=== PATIENT | male | born 1965 | race Caucasian/White ===

== ENCOUNTER 2018-08-20 17:26 | Inpatient (IN) | payer OTHER ==
[2018-08-20] VITALS (13 sets, daily range): O2SAT 95–100
[~2018-08-20] VITALS: Ht 165.1 cm; Wt 52.8 kg
[~2018-08-20 17:26] MED LIST: NO HOME MEDICATIONS
[2018-08-20] MEDS ORDERED: ASPIRIN 32325 MG/TAB PO (18:02)
[2018-08-20 20:28] LABS: BASO % 0.1 % (0.0-2.0); GRAN # 14.2 (1.4-6.5); GRAN % 83.5 % (42.2-75.2); HEMOGLOBIN 11.5 g/dl (13.5-18.0); LYMPH # 1.2 (1.2-3.4); LYMPH % 7.3 % (20.0-51.0); MEAN CELL VOLUME 97 fl (80.0-100.0); MEAN CORPUSCULAR HEMOGLOBIN 36 pg (27.0-31.0); MEAN CORPUSCULAR HGB CONC 37 g/dl (33.0-37.0); MEAN PLATELET VOLUME 9.7 fl (7.4-10.4); MONO # 1.3 (0.1-0.6); MONO % 7.9 % (1.7-9.3); PLATELET COUNT 151 K/mm3 (130-400); RED BLOOD COUNT 3.24 M/mm3 (4.20-5.60); REDCELL DISTRIBUTION WIDTH-CV 12.2 % (11.5-14.5)
[2018-08-20 20:29] LABS: HEMATOCRIT 31.4 % (42.0-52.0)
[2018-08-20 20:32] LABS: INR 1.1 (0.8-3.0)
[2018-08-20 20:34] LABS: PARTIAL THROMBOPLASTIN TIME 29.4 SECONDS (26.0-37.0)
[2018-08-20 20:40] LABS: ALANINE AMINOTRANSFERASE 64 U/L (21-72); ALBUMIN 2.9 gm/dL (3.5-5.0); ALKALINE PHOSPHATASE 157 U/L (50-136); ANION GAP 12 mmol/L (7-16); AST,SGOT 119 U/L (15-37); BLOOD UREA NITROGEN 12 mg/dL (9-20); C-REACTIVE PROTEIN 3.1 mg/dL (0.0-0.9); CALCIUM 7.7 mg/dL (8.4-10.2); CARBON DIOXIDE 27 mmol/L (22-30); CREATINE KINASE 1054 U/L (55-170); CREATININE, serum 0.58 mg/dL (0.66-1.25); GLUCOSE 62 mg/dL (74-106); LIPASE 83 U/L (23-300); MAGNESIUM 1.9 mg/dL (1.6-2.3); PHOSPHOROUS 2.8 mg/dL (2.5-4.5); TOTAL PROTEIN 6.5 gm/dL (6.4-8.2)
[2018-08-20 20:50] LABS: ALCOHOL(ethanol),MEDICAL < 10 mg/dL; CHLORIDE 80 mmol/L (98-107); POTASSIUM 2.9 mmol/L (3.4-5.0); SODIUM 118 mmol/L (137-145); TROPONIN-I 0.146 ng/mL (0.000-0.035)
[2018-08-20 22:37] LABS: CALCIUM 7.1 mg/dL (8.4-10.2); CREATININE, serum 0.47 mg/dL (0.66-1.25)
[2018-08-20 22:38] LABS: POTASSIUM 2.6 mmol/L (3.4-5.0)
[2018-08-21] VITALS (543 sets, daily range): BP systolic 101–129; BP diastolic 68–100; PULSE 61–87; TEMP 97.7–99.1; O2SAT 66–100
[2018-08-21] LABS: COLLECTION METHOD CLEAN CATCH
[2018-08-21 00:12] LABS: TRICYCLIC ANTIDEPRESS URINE NEGATIVE
[2018-08-21 00:15] LABS: PH 7 (5-8); SQUAMOUS EPITHELIAL 0-2 /hpf; URINE APPEARANCE Clear; URINE BACTERIA None Seen /hpf; URINE BILIRUBIN Negative (NEGATIVE); URINE BLOOD Negative (NEGATIVE); URINE COLOR Yellow; URINE GLUCOSE 1+ (NEGATIVE); URINE KETONE 1+ (NEGATIVE); URINE LEUKOCYTE ESTERASE Negative (NEGATIVE); URINE NITRATE Negative (NEGATIVE); URINE PROTEIN(semi-quant) Negative (NEGATIVE); URINE RBC 0-2 /hpf; URINE UROBILINOGEN Negative (NEGATIVE)
[2018-08-21 02:12] LABS: ARTERIAL BLD GAS O2 SATURATION 95.9 % (92-100); ARTERIAL BLD GAS TCO2 CT 23.6; ARTERIAL BLOOD GAS BASE EXCESS -2.5 (-2-2); ARTERIAL BLOOD GAS HCO3 22.4 meq/L (22-26); ARTERIAL BLOOD GAS PCO2 39.3 mmHg (35-45); ARTERIAL BLOOD GAS pH 7.37 (7.35-7.45)
--- NOTE | 2018-08-21 02:29 | NUR ---
PT LETHARGIC UPON ARRIVAL, UNABLE TO COMPLETE FULL ASSESSMENT PT IS TOO SICK AND NOT FULLY AWAKE TO ANSWER QUESTIONS. ASSESSMENT WAS DONE THROUGH ER NOTES/H&P. MEDICATION RECONCILLIATION UNABLE TO REVIEW PT DOESN'T HAVE MEDICATIONS WITH HIM IN HIS BELONGING AND PT NOT ALERT AND ORIENTED AT THIS TIME.
[2018-08-21 03:13] LABS: ALBUMIN 2.3 gm/dL (3.5-5.0); BILIRUBIN,TOTAL 1.4 mg/dL (0.0-1.0); CALCIUM 6.6 mg/dL (8.4-10.2); CREATININE, serum 0.46 mg/dL (0.66-1.25); POTASSIUM 3.4 mmol/L (3.4-5.0); TOTAL PROTEIN 5.4 gm/dL (6.4-8.2)
[2018-08-21 03:27] LABS: TROPONIN-I 0.109 ng/mL (0.000-0.035)
[2018-08-21 03:43] LABS: TSH w REFLEX 1.7 uIU/mL (0.465-4.680)
--- NOTE | 2018-08-21 03:53 | NUR ---
PT LETHARGIC UPON ARRIVAL, HAS SLURRED SPEECH AT TIMES AND HARD TO UNDERSTAND. BED BATH GIVEN. BELONGIGS AT BEDSIDE. UNABLE TO COMPLETE A FULL ASSESSMENT PT IS NOT ALERT AND ORIENTED. WILL CONTINU TO MONITOR.
--- NOTE | 2018-08-21 04:50 | NUR ---
2305 ARRIVED AT UNIT VIA STETCHER, LETHARGIC AND CONFUSED. UNABLE TO COMPLETE MEDICATION RECONCILIATION AND FAMILY HISTORY DUE TO PT'S CONDITION AT THIS TIME. 0120 - PT OFF UNIT FOR CT SCAN. 0140 - PT BACK ON ROOM. 0315 - PT STARTED ON LOW DOSE HEPARIN PROTOCOL ORDERED. NEXT HEP XA AT 0915.
--- NOTE | 2018-08-21 07:20 | NUR ---
Received bedside report from BRENDA Mason. Patient was resting in bed asking when he would get to go home.
--- NOTE | 2018-08-21 08:00 | NUR ---
Patient wakes from sleep and then tries to get out of bed. Bed Alarm goes off and when I enter the room. Network Developer, Destin, in room helping patient. He has just gotten done getting echocardiogram. The patient asks "Do I have a black eye?"
--- NOTE | 2018-08-21 08:00 | NUR ---
Patient is confused at this time. Patient does not remeber falling down the stiars or being transported by EMS.
[2018-08-21 09:43] LABS: CALCIUM 6.7 mg/dL (8.4-10.2); CREATININE, serum 0.44 mg/dL (0.66-1.25)
[2018-08-21 09:46] LABS: POTASSIUM 2.9 mmol/L (3.4-5.0)
--- NOTE | 2018-08-21 10:00 | NUR ---
Dr. Holley here to see patient. Team rounding is done, but I was not able to be in room at the time. Dr. Holley comes out of the room and states " he will probably want to leave AMA today. He is saying he wants to leave." I respond to Dr. Holley by saying, "Personally, I don't feel like he is safe to go home at this time and he isn't fully oriented and he doesn't seem able to make his own decisions." Dr. Holley responds with "well, he answered all of my questions correctly and he is able to make his own decisions. SW, Pharmacy, and Case Management present for this conversation.
[2018-08-21 10:14] LABS: BASO % 0.1 % (0.0-2.0); EOS % 0.1 % (0-4.0); GRAN # 10.1 (1.4-6.5); GRAN % 80.8 % (42.2-75.2); HEMATOCRIT 28.5 % (42.0-52.0); HEMOGLOBIN 10.1 g/dl (13.5-18.0); LYMPH # 1.4 (1.2-3.4); LYMPH % 11.2 % (20.0-51.0); MEAN CELL VOLUME 101 fl (80.0-100.0); MEAN CORPUSCULAR HEMOGLOBIN 36 pg (27.0-31.0); MEAN CORPUSCULAR HGB CONC 35 g/dl (33.0-37.0); MEAN PLATELET VOLUME 9.4 fl (7.4-10.4); MONO # 0.9 (0.1-0.6); MONO % 6.9 % (1.7-9.3); PLATELET COUNT 149 K/mm3 (130-400); RED BLOOD COUNT 2.83 M/mm3 (4.20-5.60); REDCELL DISTRIBUTION WIDTH-CV 12.3 % (11.5-14.5)
--- NOTE | 2018-08-21 11:00 | NUR ---
Patient has been intermittently stating that he needs to "get out of here. I have chores to do. 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 He states "that's not true. I never went downstairs." I ask the patient if he remembers coming to the hospital. He states "I remember sitting down in my chair at home and then i woke up here!" He gets quite agitated and states that he is leaving now. I am able to redirect the patient and talk to him about lunch. He redirects easily.
[2018-08-21 13:21] LABS: FOLATE (FOLIC ACID) >20.0 ng/mL (7.0-31.4)
--- NOTE | 2018-08-21 13:41 | NUR ---
LORENZO and LORENZO student attended clinical rounding and met with patient to discuss discharge planning. Patient lives alone and was found at the bottom of his basement stairs by his brother in law. The clinical laboratory assistant and ems were called. They report his house is uninhabitable. patient would like to return home at discharge and wants to go home today but would be leaving AM. Patient does not have a PCP and has a cane but does not use it. His DPOA is his niece Raúl. LORENZO called Raúl who reports that she does have DPOA and will bring it in. Raúl is concerns with him returning home due to the conditions he is living in. The police reported he did not have any food in the home and raúl checked his food card and it has not been used since february. Raúl reports there are and live cats all over the house, feces, no central heat and he is using small space heaters, and stuff to the point that you cant get to the bathroom or kitchen. LORENZO set up a meeting at 1:45 with raúl at the hospital. Patients sister France came to the hospital and asked for an update. LORENZO informed her that she could not update her medically since she isnt dpoa but will discuss concerns with her. She reports it was her that found him and that they hadn't heard from him for a few days and became worried. France said she takes him food when she can but he doesn't get food on his own. He is living in the house that was his parents and has been drinking heavily since his mom 10 years ago. She is also worried about him returning home. LORENZO explained that patient is able to make his own decisions and at this time would like to go home. LORENZO informed her of the family meeting at 1:45 and she reports she will come back for that. LORENZO made APS report [id number]. [facility] called about patients old Medicaid. Will come meet with TAYO once she arrives.
--- NOTE | 2018-08-21 16:07 | NUR ---
SW met with patients DPOA/niece and sister. They are concerned about his wellbeing returning home. Patient is confused today and does not remember what happened or why he is in the hosptial. 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 Patient does not have cows. Niece would like placement for patient in or close to [place]. Patient is not agreeable to placement at this time but is unable to safely return to his home. TAYO copied and placed on chart. LORENZO made referrals to [facility] in [place] and [facility] in [place]. [facility] is unable to take new referrals next week and ahsan did not answer the phone. LORENZO will continue to work with patient and family on DC planning. Arlen with finance completed medicaid francesco with patients DPOA.
--- NOTE | 2018-08-21 16:48 | NUR ---
Patient has been very agitated. Patient received 1 mg of Ativan.
--- NOTE | 2018-08-21 17:00 | NUR ---
Patient tries to get out of bed. Bed Alarm goes off. He then urinates all over himself, the bed, and the floor. 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
--- NOTE | 2018-08-21 19:18 | NUR ---
Gave report to BRENDA Foster. Patient was asleep. MEdications varified and patient handed off.
--- NOTE | 2018-08-21 19:18 | NUR ---
Bedside report recieved from BRENDA Duong. Patient sleeping in bed in low and locked position, call light within reach, rails up x3 and bed alarm armed. RFA IV with NS running at ordered rate and Heparin running at 11ml/hr. Care assumed at this time.
--- NOTE | 2018-08-21 20:25 | NUR ---
Patient agitated and restless at this time. Found to have pulled INT IV from right hand. Pressure held and dressing applied. Patient is reoriented and provided PRN ativan as documented in AUG. Full bed bath provided at this time with change of sheets and gown. Patient is provided warm blankets and positioned for comfort with seizure pads in place, bed in low and locked position, call light within reach, rails up x3, and bed alarm armed. Will continue to monitor.
--- NOTE | 2018-08-21 22:20 | NUR ---
CIWA score as documented without need for dosing at this time. Care ongoing.
[2018-08-21 23:06] LABS: MAGNESIUM 1.8 mg/dL (1.6-2.3); PHOSPHOROUS 1.6 mg/dL (2.5-4.5)
[2018-08-21 23:13] LABS: POTASSIUM 2.9 mmol/L (3.4-5.0)
[2018-08-22] VITALS (742 sets, daily range): BP systolic 98–124; BP diastolic 68–104; PULSE 66–94; TEMP 97–98.5; O2SAT 54–100
--- NOTE | 2018-08-22 00:14 | NUR ---
Patient with positive visual hallucinations upon assessment. Reorientation provided.
--- NOTE | 2018-08-22 00:27 | NUR ---
Patient with frequent attempts to climb from bed so far this shift. Frequent reorientation provided and bed alarm remains on at most sensitive setting. Care ongoing.
[2018-08-22 05:41] LABS: BASO % 0.2 % (0.0-2.0); EOS # 0.1 (0.0-0.7); GRAN # 8.6 (1.4-6.5); GRAN % 72.2 % (42.2-75.2); HEMOGLOBIN 10.8 g/dl (13.5-18.0); LYMPH # 2.1 (1.2-3.4); LYMPH % 17.3 % (20.0-51.0); MEAN CELL VOLUME 101 fl (80.0-100.0); MEAN CORPUSCULAR HEMOGLOBIN 36 pg (27.0-31.0); MEAN CORPUSCULAR HGB CONC 36 g/dl (33.0-37.0); MEAN PLATELET VOLUME 9.2 fl (7.4-10.4); MONO % 8.5 % (1.7-9.3); PLATELET COUNT 177 K/mm3 (130-400); RED BLOOD COUNT 2.97 M/mm3 (4.20-5.60); REDCELL DISTRIBUTION WIDTH-CV 12.3 % (11.5-14.5)
[2018-08-22 05:55] LABS: ALBUMIN 2.5 gm/dL (3.5-5.0); BILIRUBIN,TOTAL 1.3 mg/dL (0.0-1.0); CALCIUM 7.1 mg/dL (8.4-10.2); CREATININE, serum 0.43 mg/dL (0.66-1.25); POTASSIUM 3.8 mmol/L (3.4-5.0); TOTAL PROTEIN 5.8 gm/dL (6.4-8.2)
--- NOTE | 2018-08-22 08:00 | NUR ---
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 Pt educated field artillery operations specialist light to prevent fall, and of bed alarm (which is on) if pt attempts to get out of bed.
--- NOTE | 2018-08-22 09:00 | NUR ---
Pt's daughter at bedside visting. Expressing concern for home environment after showing this staff memeber photographs of home. client services administrator is involved in care.
[2018-08-22 11:59] LABS: URIC ACID 2.6 mg/dL (3.5-8.5)
[2018-08-22 13:47] LABS: CALCIUM 7.1 mg/dL (8.4-10.2); CREATININE, serum 0.45 mg/dL (0.66-1.25); POTASSIUM 3.4 mmol/L (3.4-5.0)
[2018-08-22 16:40] LABS: CREATININE, serum 0.4 mg/dL (0.66-1.25)
[2018-08-22 16:45] LABS: POTASSIUM 2.7 mmol/L (3.4-5.0)
[2018-08-22 20:42] LABS: CALCIUM 6.8 mg/dL (8.4-10.2); CREATININE, serum 0.36 mg/dL (0.66-1.25)
--- NOTE | 2018-08-22 20:45 | NUR ---
Patient very impulsive at this time; attempting to stand up unassisted in bed. States " I know my own limitations!" In response to nurses request to stay in bed for own saftey as he is unsteady on his feet. Requested multiple for this patient to stay in bed as he was continuously attempting to get up. Patient asking to put his pants on. Pants were in bag and were damp and smelled of urine and feces. Was able to convince patient to stay in gown. supervisor cutting and sewing room called and she took patient's clothing to the laundry to wash them; patient ok with this. PRN ativan administered.
[2018-08-23] VITALS (620 sets, daily range): BP systolic 87–124; BP diastolic 56–91; PULSE 60–101; TEMP 97.8–98.5; O2SAT 89–100
--- NOTE | 2018-08-23 01:00 | NUR ---
Patient again attempting to stand up unassisted to void. Gave patient urinal and allowed patient to stand by bed with stand by assist. Sheets wet with urine. Bedding changed.
[2018-08-23 01:24] LABS: CREATININE, serum 0.4 mg/dL (0.66-1.25); POTASSIUM 3.5 mmol/L (3.4-5.0)
[2018-08-23 01:55] LABS: CALCIUM 7.1 mg/dL (8.4-10.2)
--- NOTE | 2018-08-23 02:10 | NUR ---
Called E-ICU nurse to report latest BMP values. Awaiting orders if needed.
--- NOTE | 2018-08-23 03:40 | NUR ---
Patient resting comfortably in bed on sedation; no concerns at this time.
--- NOTE | 2018-08-23 04:30 | NUR ---
Patient resting quietly in bed; no concerns at this time.
[2018-08-23 04:46] LABS: BASO % 0.1 % (0.0-2.0); EOS # 0.2 (0.0-0.7); EOS % 1.6 % (0-4.0); GRAN # 7.2 (1.4-6.5); GRAN % 71.9 % (42.2-75.2); LYMPH # 1.4 (1.2-3.4); LYMPH % 13.9 % (20.0-51.0); MEAN CELL VOLUME 101 fl (80.0-100.0); MEAN CORPUSCULAR HEMOGLOBIN 36 pg (27.0-31.0); MEAN CORPUSCULAR HGB CONC 35 g/dl (33.0-37.0); MEAN PLATELET VOLUME 9.6 fl (7.4-10.4); MONO # 1.2 (0.1-0.6); MONO % 11.5 % (1.7-9.3); PLATELET COUNT 203 K/mm3 (130-400); RED BLOOD COUNT 2.81 M/mm3 (4.20-5.60); REDCELL DISTRIBUTION WIDTH-CV 12.3 % (11.5-14.5)
[2018-08-23 04:50] LABS: HEMATOCRIT 28.3 % (42.0-52.0)
[2018-08-23 05:03] LABS: ALBUMIN 2.4 gm/dL (3.5-5.0); BILIRUBIN,TOTAL 0.7 mg/dL (0.0-1.0); CALCIUM 7.3 mg/dL (8.4-10.2); CREATININE, serum 0.41 mg/dL (0.66-1.25); POTASSIUM 3.9 mmol/L (3.4-5.0); TOTAL PROTEIN 5.4 gm/dL (6.4-8.2)
--- NOTE | 2018-08-23 07:00 | NUR ---
Pt AAOx3 but groggy with pt-aware occasional slurred speech. Pt able to state name//location but remains unaware of how pt ended up in hospital. Call light within reach, educated to not attempt to get out of bed d/t fall risk. Pt agrees verbally
--- NOTE | 2018-08-23 08:00 | NUR ---
$26 sealed in package, signed by Pt & RN, taken to safe by BRENDA Weirsoftware engineer web applications
[2018-08-23 09:32] LABS: ANION GAP 3 mmol/L (7-16); BLOOD UREA NITROGEN < 2 mg/dL (9-20); CALCIUM 7.4 mg/dL (8.4-10.2); CARBON DIOXIDE 28 mmol/L (22-30); CHLORIDE 91 mmol/L (98-107); CREATININE, serum 0.41 mg/dL (0.66-1.25); GLUCOSE 95 mg/dL (74-106); POTASSIUM 3.7 mmol/L (3.4-5.0); SODIUM 122 mmol/L (137-145)
--- NOTE | 2018-08-23 09:45 | NUR ---
MD Vivek and MD Caden at bedside speaking with pt about plan of care.
--- NOTE | 2018-08-23 10:32 | NUR ---
Devante of pt called, updated, will be coming to visit "after lunch time"
[2018-08-23 10:50] LABS: MAGNESIUM 1.6 mg/dL (1.6-2.3); PHOSPHOROUS 1.8 mg/dL (2.5-4.5)
--- NOTE | 2018-08-23 11:42 | NUR ---
Pt moving head side to side with 5-10 strong coughs per min. Endotracheal suction performed with small amount secretions, oral care provided after pt stopped coughing and moving head.
--- NOTE | 2018-08-23 13:00 | NUR ---
Physical Therapy moved pt from bed to chair. Pt unsteady. Chair alarm applied, pt educated on fall risk d/t history of fall, malnutrition and labs out of normal range. Family member (sister) visiting. Call light within reach, all cords and tubes placed in organized fashion.
[2018-08-23 13:23] LABS: CALCIUM 7.2 mg/dL (8.4-10.2); CREATININE, serum 0.45 mg/dL (0.66-1.25); POTASSIUM 3.5 mmol/L (3.4-5.0)
--- NOTE | 2018-08-23 16:44 | NUR ---
Devante at bedside visiting. Pt remains up to chair. Pt stating wish to remove all lines and tubes to get up and walk around by onself. Pt re-educated on fall risk and call light
[2018-08-23 18:09] LABS: CALCIUM 6.9 mg/dL (8.4-10.2); CREATININE, serum 0.41 mg/dL (0.66-1.25); POTASSIUM 3.2 mmol/L (3.4-5.0)
--- NOTE | 2018-08-23 20:00 | NUR ---
Shift assessment complete at this time. Plan of care reviewed at bedside with patient et family. Additional time taken to address any other needs or concerns. Vitals stable at this time. Pt denies pain or any other concerns. Assisted Pt with ambulation from chair back to bed. Will continue to monitor.
[2018-08-23 21:29] LABS: CALCIUM 7.1 mg/dL (8.4-10.2); CREATININE, serum 0.46 mg/dL (0.66-1.25); POTASSIUM 3.3 mmol/L (3.4-5.0)
[2018-08-24] VITALS (988 sets, daily range): BP systolic 93–161; BP diastolic 69–99; PULSE 70–104; TEMP 98.1–100.3; O2SAT 88–100
--- NOTE | 2018-08-24 | NUR ---
Shift reassessment complete at this time. No changes from previous assessment. Vitals stable. Pt denies pain or any other discomfort. Will continue to monitor.
[2018-08-24 01:20] LABS: CREATININE, serum 0.47 mg/dL (0.66-1.25); POTASSIUM 3.6 mmol/L (3.4-5.0)
--- NOTE | 2018-08-24 04:00 | NUR ---
Shift reassessment complete at this time. No changes from previous assessment. Vitals stable at this time. Denies pain or any other discomfort. Will continue to monitor.
[2018-08-24 05:57] LABS: BASO % 0.2 % (0.0-2.0); EOS # 0.1 (0.0-0.7); EOS % 1.3 % (0-4.0); GRAN % 63.2 % (42.2-75.2); LYMPH # 1.8 (1.2-3.4); MEAN CELL VOLUME 102 fl (80.0-100.0); MEAN CORPUSCULAR HGB CONC 35 g/dl (33.0-37.0); MEAN PLATELET VOLUME 9.5 fl (7.4-10.4); MONO # 1.4 (0.1-0.6); PLATELET COUNT 245 K/mm3 (130-400); RED BLOOD COUNT 2.47 M/mm3 (4.20-5.60); REDCELL DISTRIBUTION WIDTH-CV 12.6 % (11.5-14.5)
[2018-08-24 05:59] LABS: HEMATOCRIT 25.2 % (42.0-52.0); HEMOGLOBIN 8.8 g/dl (13.5-18.0); MEAN CORPUSCULAR HEMOGLOBIN 36 pg (27.0-31.0)
[2018-08-24 06:14] LABS: ALBUMIN 2.2 gm/dL (3.5-5.0); BILIRUBIN,TOTAL 0.4 mg/dL (0.0-1.0); CREATININE, serum 0.4 mg/dL (0.66-1.25); MAGNESIUM 1.5 mg/dL (1.6-2.3); POTASSIUM 3.8 mmol/L (3.4-5.0); TOTAL PROTEIN 5.1 gm/dL (6.4-8.2)
--- NOTE | 2018-08-24 07:45 | NUR ---
Received bedside report from BRENDA Gutiérrez.
--- NOTE | 2018-08-24 07:53 | NUR ---
Bedside report given to Steph Marie.
[2018-08-24 09:14] LABS: CALCIUM 7.4 mg/dL (8.4-10.2); CREATININE, serum 0.41 mg/dL (0.66-1.25); POTASSIUM 3.8 mmol/L (3.4-5.0)
--- NOTE | 2018-08-24 15:43 | NUR ---
LORENZO attended clinical rounds. A [place] Mental Health Screener, Jermaine, was consulted and he met with the patient. The screener informed the hospitalist he was thinking inpatient psych for the patient, once medically stable. LORENZO then met with the patient's niece, Nae. Nae informed LORENZO that the screener discussed inpatient psych at [facility] or in [place]. The patient's niece reports she is agreeable for inpatient psych for the patient and is agreeable for LORENZO to contact those two facilities and send a referral. LORENZO contacted [facility]. [facility] reports that they only accept Medicaid Pending, if it is a secondary insurance. [facility] did refer SW to their licensed prosthetist, Yvette, who could refer SW to other facilities. LORENZO attempted to contact Yvette ([phone]). LORENZO left a voicemail. LORENZO then contacted [facility] in [place]. [facility] reports that they do not accept Medicaid pending. LORENZO to inform the patient's niece. Franklin, from [facility], also contacted LORENZO and asked for an update. LORENZO informed Franklin that the mental health screener is recommeding inpatient psych. Franklin referred SW to [facility] ([phone]) in [place] and [facility] ([phone]) in [place]. LORENZO to discuss these options with the patient's niece. The [place] Mental Health Screener, Jermaine, is to return back to the hospital. LORENZO to follow up with him and continue to follow.
--- NOTE | 2018-08-24 16:30 | NUR ---
LORENZO collaborated with Jermaine, Crisis Stabalization Cnc Set Up Operator, from [facility]. Jermaine reports that he is going to reach out to [facility] and [facility] on inpatient psych. LORENZO provided Jermaine with her contact information. LORENZO to continue to follow.
--- NOTE | 2018-08-24 20:00 | NUR ---
Shift assessment complete at this time. Plan of care reviewed at bedside with patient et family. Additional time taken to address any other needs or concerns. Denies pain or any other discomfort. Vitals stable at this time. Will continue to monitor.
[2018-08-25] VITALS (386 sets, daily range): BP systolic 104–124; BP diastolic 68–96; PULSE 72–101; TEMP 98–99.8; O2SAT 78–100
--- NOTE | 2018-08-25 | NUR ---
Pt resting comfortably in bed. Denies pain or any other discomfort. Vitals stable at this time. Will continue to monitor.
--- NOTE | 2018-08-25 04:00 | NUR ---
Pt resting comfortably in bed. Denies pain or any other discomfort. Vitals stable at this time. Will continue to monitor.
[2018-08-25 05:20] LABS: MEAN CELL VOLUME 102 fl (80.0-100.0); MEAN CORPUSCULAR HGB CONC 35 g/dl (33.0-37.0); MEAN PLATELET VOLUME 8.8 fl (7.4-10.4); PLATELET COUNT 306 K/mm3 (130-400); RED BLOOD COUNT 2.36 M/mm3 (4.20-5.60); REDCELL DISTRIBUTION WIDTH-CV 13.2 % (11.5-14.5)
[2018-08-25 05:21] LABS: HEMOGLOBIN 8.5 g/dl (13.5-18.0); MEAN CORPUSCULAR HEMOGLOBIN 36 pg (27.0-31.0)
[2018-08-25 05:33] LABS: ALBUMIN 2.2 gm/dL (3.5-5.0); CALCIUM 7.1 mg/dL (8.4-10.2); CREATININE, serum 0.36 mg/dL (0.66-1.25); PHOSPHOROUS 2.3 mg/dL (2.5-4.5)
[2018-08-25 05:35] LABS: POTASSIUM 2.8 mmol/L (3.4-5.0)
--- NOTE | 2018-08-25 07:35 | NUR ---
Bedside report given to BRENDA Foster.
--- NOTE | 2018-08-25 08:00 | NUR ---
PATIENT AWAKE IN ROOM. HE STATES HE IS READY TO EAT BREAKFAST. FOOD ORDERED. PATIENT IS ALERT AND ORIENTED, HOWEVER HE DOES OCCASSIONALLY HAVE EPISODES WHERE HE TRIES TO GET OUT OF BED. HE STATES HE NEEDS TO GO UPSTAIRS TO GET HIS SWEATPANTS. HE KNOWS HE IS IN THE HOSPITAL, BUT IS SURE HE HAS CLOTHES UPSTAIRS STILL.
--- NOTE | 2018-08-25 11:03 | NUR ---
Jermaine, with [facility], informed LORENZO that it is too soon to start reaching out to inpatient psych units, due to the patient not being stable yet. Jermaine reports that he did reach out to [facility] and reports that they will most likely not be an option. He states that they cannot accept patients that may have dementia. LORENZO updated the clinical team and the patient's niece. SW to continue to follow.
[2018-08-25 11:25] LABS: RETIC # 0.11 M/mm3 (0.02-0.16); RETIC % 4.8 % (0.5-3.52)
--- NOTE | 2018-08-25 11:28 | NUR ---
On 08/21/18, social service liaison called an ethics consult with Debbie Lucas due to nursing concerns that patient was trying to leave AMA and would not be safe to discharge home alone. Claudette and Debbie met with nurses, Jo, and Dr Holley to discuss concerns and risks related to patient's AMA discharge. It was determined, by Dr Holley, that patient would not be safe to discharge AMA due to periods of confusion. ICU team arranged protocols to keep patient safe and not discharge. Patient's niece and durable power of environmental attorney were in agreement that patient was not safe to discharge from the hospital. Claudette contacted [facility], behavioral health, and discussed concerns related to patient's safety. Social workers have been following and working with patient and power of environmental attorney to secure a discharge plan.
[2018-08-25 12:13] LABS: IRON,SERUM 19 ug/dL (35-150)
[2018-08-25 12:15] LABS: ALBUMIN 2.5 gm/dL (3.5-5.0); CALCIUM 7.4 mg/dL (8.4-10.2); CREATININE, serum 0.41 mg/dL (0.66-1.25); PHOSPHOROUS 2.4 mg/dL (2.5-4.5); POTASSIUM 3.8 mmol/L (3.4-5.0)
[2018-08-25 12:24] LABS: TOTAL IRON BINDING CAPACITY 196 ug/dL (261-462)
[2018-08-25 12:48] LABS: FERRITIN 199 ng/mL (18-464)
--- NOTE | 2018-08-25 12:55 | NUR ---
PATIENT CONTINUES TO BE VERY IMPULSIVE AND CONFUSED. HE KEEPS THINKING HE NEEDS TO GO PUT WOOD IN THE FURNACE. HE IS CONTINUALLY REMINDED THAT HE IS AT THE HOSPITAL. CHAIR ALARM IS ON, HOWEVER THE PATIENT STANDS UP AND TRACES BACK THE ALARM BOX AND SILENCES IT. HE HAS BEEN UP AMBULATING IN THE HALLS 4 TIMES WITH ASSISTANCE
--- NOTE | 2018-08-25 14:52 | NUR ---
did contact inpatient psych facilities to inquire if they accept Medicaid pending. [facility] only accepts 60+ patient's. [facility] does not accept Medicaid Pending. [facility] reports that their daily fees would be $971 and that does not include pharmacy, labs, or doctors. [facility] did refer SW to [facility]. SW to continue to follow.
--- NOTE | 2018-08-25 18:50 | NUR ---
PATIENT CONTINUES TO BE VERY RESTLESS IN HIS ROOM. HE STATES HE WANTS TO GET UP AND MOVE AND DOENS'T UNDERSTAND WHY HE CAN'T WALK ON HIS OWN. 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
[2018-08-25 19:02] LABS: CALCIUM 7.5 mg/dL (8.4-10.2); CREATININE, serum 0.41 mg/dL (0.66-1.25); POTASSIUM 3.9 mmol/L (3.4-5.0)
--- NOTE | 2018-08-25 19:05 | NUR ---
REPORT GIVEN TO BRENDA JACOBS.
--- NOTE | 2018-08-25 19:10 | NUR ---
IN GIVING REPORT TO ARLENE AND PATIENT WAS AWAKE AND TALKING. HE WAS CURRENTLY SITTING IN THE CHAIR. PATIENT MADE A LOUD NOISE AND THEN BEGAN TO HAVE A SEIZURE. THE SEIZURE LASTED APPROXIMATELY 45 SECONDS. HE APPEARS TO HAVE BIT HIS LIP SMALL AMOUNTS OF BLOOD WERE NOTED. PATIENT STAYED IN A POSTICTAL PHASE FOR APPROXIMATELY 10 MINUTES. HE WAS MOVED BACK INTO THE BED WITH A HEAVY 2 PERSON ASSIST. BP DROPPED TO 53/42. BP REBOUNDED AND VSSInes CHRISTIANSON NP WAS IN THE UNIT AND CAME IN. ORDER FOR ATIVAN GIVEN. SHE CONTACTED NEURO AND BEDROS.
--- NOTE | 2018-08-25 19:30 | NUR ---
THIS VOICE DATA COMMUNICATIONS ENGINEER AGREES WITH NURSE PATEL'S NOTE REGARDING PT'S SEIZURE ACTIVITY DURING SHIFT CHANGE BEDSIDE REPORTING.
--- NOTE | 2018-08-25 19:45 | NUR ---
AYSHA, NIECE OF PATIENT AND DPOA WAS CALLED AND MESSAGE WAS LEFT. NUMBER GIVEN FOR A CALL BACK.
--- NOTE | 2018-08-25 20:00 | NUR ---
PT'S DPOA AYSHA CALLED BACK AND UPDATED REGARDING PT'S CONDITION. NIECE WILL BE HERE TOMMORROW AROUND 0900. HOME PHONE NUMBER WRITTEN DOWN IN CHART.
--- NOTE | 2018-08-25 20:05 | NUR ---
DR. GRIGGS AT BEDSIDE TO EVALUATE PT.
--- NOTE | 2018-08-25 22:01 | NUR ---
PT ALERT AND ORIENTED WITH GENERAL QUESTIONS BUT THROWS RANDOM CONVERSATION AND CONFUSED MOST OF THE TIME. PT KNOWS HE IS IN THE HOSPITAL BUT THINKS THAT HIS HOUSE IS NEXT DOOR AND HE NEEDS TO GRAB SOME WOOD FOR THE FURNACE TO KEEP HIM WARM. PT RE-ORIENTED MULTIPLE TIMES, AND KEEPS GETTING AGITATED AND GETTING OUT OF BED. 1:1 SITTER PRESENT AT BEDSIDE AT THIS TIME AND PT CURRENTLY SLEEPIMG AFTER GIVEN ATIVAN PER ORDER. WILL CONTINUE TO MONITOR.
[2018-08-25 22:03] LABS: ALBUMIN 2.5 gm/dL (3.5-5.0); BILIRUBIN,TOTAL 0.4 mg/dL (0.0-1.0); CALCIUM 7.2 mg/dL (8.4-10.2); CREATININE, serum 0.36 mg/dL (0.66-1.25); POTASSIUM 3.4 mmol/L (3.4-5.0); TOTAL PROTEIN 5.6 gm/dL (6.4-8.2)
--- NOTE | 2018-08-25 23:05 | NUR ---
PT ON POTASSIUM PROTOCOL AND LAST VALUE WAS 3.4. UNABLE TO REPLACE POTASSIUM AT THIS TIME PT CURRENTLY SLEEPING AND GETS VERY AGITATED AND CONFUSED WHEN AWAKE. WILL WAIT FOR 0500 MORNING LABS AND WILL REPLACE PER PROTOCOL.
[2018-08-26] VITALS (381 sets, daily range): BP systolic 110–130; BP diastolic 57–88; PULSE 70–106; TEMP 98.4–103; O2SAT 55–100
[2018-08-26 06:09] LABS: MEAN CELL VOLUME 104 fl (80.0-100.0); MEAN CORPUSCULAR HGB CONC 35 g/dl (33.0-37.0); REDCELL DISTRIBUTION WIDTH-CV 13.4 % (11.5-14.5)
[2018-08-26 06:10] LABS: HEMATOCRIT 27.1 % (42.0-52.0); HEMOGLOBIN 9.4 g/dl (13.5-18.0); MEAN CORPUSCULAR HEMOGLOBIN 36 pg (27.0-31.0); PLATELET COUNT 427 K/mm3 (130-400)
[2018-08-26 06:16] LABS: ALBUMIN 2.5 gm/dL (3.5-5.0); BILIRUBIN,TOTAL 0.5 mg/dL (0.0-1.0); CALCIUM 7.8 mg/dL (8.4-10.2); CREATININE, serum 0.38 mg/dL (0.66-1.25); POTASSIUM 3.8 mmol/L (3.4-5.0); TOTAL PROTEIN 5.8 gm/dL (6.4-8.2)
[2018-08-26 06:17] LABS: ALBUMIN 2.5 gm/dL (3.5-5.0); CALCIUM 7.8 mg/dL (8.4-10.2); CREATININE, serum 0.39 mg/dL (0.66-1.25); PHOSPHOROUS 3.1 mg/dL (2.5-4.5); POTASSIUM 3.8 mmol/L (3.4-5.0)
--- NOTE | 2018-08-26 07:15 | NUR ---
Report received from BRENDA Mason.
[2018-08-26 07:21] LABS: BAND 16 % (0-10); LYMPHOCYTE 11 % (20.0-51.0); NEUTROPHILS 58 % (42.0-75.2); PLATELET ESTIMATE NORMAL (NORMAL)
--- NOTE | 2018-08-26 08:00 | NUR ---
Assessment completed. Pt awake, restless. Int confusion. Bed exit alarm remains on. Discussed plan of care with pt r/t MRI and EEG for today. Vital signs stable. Call light in reach.
--- NOTE | 2018-08-26 11:15 | NUR ---
Pt to MRI via wheelchair.
--- NOTE | 2018-08-26 12:05 | NUR ---
Pt back to room from MRI. Pt to chair. Chair exit alarm on. Pt's daughter in room. Encouraged pt to eat lunch with protein. Pt drinking ensure drink now. Call light in reach.
--- NOTE | 2018-08-26 13:16 | NUR ---
LORENZO attended clinical rounds. The patient is to have a MRI and EEG today and will possibly be transferred to the floor. LORENZO and LORENZO student then followed up with the patient's niece, Nae. Nae was interested on an update and where APS was at with the report. LORENZO contacted APS Worker, Tari, with [facility]. Tari reports that she was assigned his case and that she would like to meet with the patient tomorrow, 08/27. LORENZO informed the patient's niece. LORENZO attempted to contact Tari to get an estimated time of when she would be at the hospital. LORENZO left a voicemail and will continue to follow.
--- NOTE | 2018-08-26 13:52 | NUR ---
Report given to surgical scrub techDaquan.
--- NOTE | 2018-08-26 14:03 | NUR ---
Telephone report recieved from BRENDA Foster
--- NOTE | 2018-08-26 14:15 | NUR ---
Pt to room 313 via wheelchair. Pt up to chair with standby assist. chair exit alarm on. Pt's daughter in room. Updated BRENDA Butt on pt status.
--- NOTE | 2018-08-26 14:30 | NUR ---
Pt arrived to [facility] in wheelchair with BRENDA Foster. Pt's IV displaced duing transfer from ICU to [facility]. BRENDA Foster had one failed insertion attempt in Right Forearm, pt did experience brief discomfort with that insertion attempt which resolved. This RN then inserted an IV successfully. Shift Assessment documented this morning remains accurate. Pt accompanied by 3 visitors, including niece that has spent a lot of time visiting pt while in the ICU. Physical Therapy already in to ambulate pt. Pt stating wishes to ambulate independently without need to push call light or ask for help. Pt re-educated on importance of calling to prevent a fall d/t history of falls, and lines and tubes (Telemetry box and 3%NS fluids) increasing trip hazard. Pt reluctant to call before ambulating. Pt placed in easily observable position in chair, with chair alarm on, and placed in room thats closest to nurses station. Call light within reach
[2018-08-26 17:23] LABS: CALCIUM 7.6 mg/dL (8.4-10.2); CREATININE, serum 0.47 mg/dL (0.66-1.25); POTASSIUM 3.4 mmol/L (3.4-5.0)
[2018-08-26 23:12] LABS: CALCIUM 7.6 mg/dL (8.4-10.2); CREATININE, serum 0.45 mg/dL (0.66-1.25); POTASSIUM 3.9 mmol/L (3.4-5.0)
[2018-08-27 00:33] VITALS: BP 124/71; PULSE 85; TEMP 98.6
[2018-08-27 02:24] VITALS: BP 121/78; PULSE 85; TEMP 97.2
--- NOTE | 2018-08-27 02:41 | NUR ---
Patient denied having pain and discomfort. Had visitors tonight. Took Potassium supplement PO, but stated that it made his mouth burn, and if needed again, he would rather have IV. Patient had elevated temperature, and given APAP. Given Ativan once for alcohol detox so far this shift. Resting in bed with eyes closed at this time. NA called to Dr. Can. New order received to restart hypertonic solution of 3% NaCl. plastics supervisor got from pharmacy and brought to this nurse and started at 20 ml/hr per MD order. Patient voiced understanding. LS with inspiratory wheezes throughout. Productive cough, but unable to observe sputum. Denies having SOB and dyspnea. Has been ambulating to bathroom with SBA. Continent. Coccyx area red, but blanchable. Encouraged to stay off of bottom, and is laying on side at this time. Call light is within reach. Continues on fluid restriction, and no free water. Poor appetite continues. Voices no needs or conerns at this time.
--- NOTE | 2018-08-27 03:03 | NUR ---
Denies having pain and discomfort. Voices no needs or concerns at this time. Continues on seizure precautions. Took medications as ordered. LS CTA. Respirations even and unlabored. Heart with regular rate and rhythm. No edema noted. Urine is clear and yellow. Denies having burning, pain, and discomfort with urination. Denies having feelings of urinary frequency, urgency, and retention. Has been sleepy, but awakens easily to verbal stimuli. Resting in bed with eyes closed at this time. call light is within reach.
--- NOTE | 2018-08-27 13:41 | NUR ---
Initial visit; Patient's family thanked Cross Tie Tram Loader for offering God's blessings to patient and family.
--- NOTE | 2018-08-27 13:54 | NUR ---
LORENZO met with patients family and tari from D[facility]/APS. Tari discussed possible options with the family and did agree that patient is confused about what is going on. They would like a referral sent to the [facility] in [place]. SW will make referral and continue to follow. Patient is not ready to medically discharge at this time.
[2018-08-28 08:00] VITALS: BP 134/76; PULSE 97; TEMP 99.1
--- NOTE | 2018-08-28 10:00 | NUR ---
DANA England stated pt can ambulate independently in room, assistance required if pt ambulates in [place]
[2018-08-28 12:00] VITALS: BP 130/70; PULSE 88; TEMP 98.7
[2018-08-28 14:53] LABS: CREATININE, serum 0.48 mg/dL (0.66-1.25); POTASSIUM 3.9 mmol/L (3.4-5.0)
[2018-08-28 15:00] LABS: CALCIUM 7.7 mg/dL (8.4-10.2); CREATININE, serum 0.43 mg/dL (0.66-1.25); POTASSIUM 3.4 mmol/L (3.4-5.0)
--- NOTE | 2018-08-28 15:14 | NUR ---
LORENZO called sidra lopes and left a message for viral. LORENZO talked with Tari at [facility] who [facility] tell her they are only taking medicare now. she said to call mckayla ([phone]), [facility] ([phone]), and [facility] ([phone]). LORENZO called mckayla and gave information, report they will have a nurse call.
[2018-08-28 15:22] LABS: CALCIUM 7.9 mg/dL (8.4-10.2); CREATININE, serum 0.47 mg/dL (0.66-1.25); POTASSIUM 3.5 mmol/L (3.4-5.0)
[2018-08-28 15:46] VITALS: BP 121/72; PULSE 94; TEMP 98.6
[2018-08-28 17:57] LABS: CREATININE, serum 0.47 mg/dL (0.66-1.25); POTASSIUM 3.8 mmol/L (3.4-5.0)
--- NOTE | 2018-08-28 18:41 | NUR ---
MD Juan José notified of most recent sodium, choloride, and potassium labs. Replacement Orders have not yet been recieved
[2018-08-28 19:36] VITALS: BP 134/70; PULSE 84; TEMP 98.9
--- NOTE | 2018-08-28 23:49 | NUR ---
Patient denies having pain and discomfort, and is without s/sx of pain and discomfort at this time. Has been getting up independently in room. Gait is much more steady tonight compared to last night. Patient has been voicing that he is worried about his house, as it is supposed to snow tomorrow, and his house is without any heat. Voices no needs or concerns at this time. Resting in bed with eyes closed at this time. Call light is within reach.
--- NOTE | 2018-08-29 03:01 | NUR ---
Continues to be resting in bed with eyes closed at this time. Voices no needs or conerns so far this shift, except wanting to be able to go home. Call light is within reach.
[2018-08-29 05:32] VITALS: BP 121/51; PULSE 84; TEMP 98.4
--- NOTE | 2018-08-29 05:53 | NUR ---
Patient has been pleasant throughout this shift. Has been up on and off throughout the night, snacking in room. 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 Rated pain as a 2, and described it as dull. Sitting upright in bed at this time watching TV. Call light is within reach. Voices no needs at this time.
[2018-08-29 09:06] LABS: MEAN CELL VOLUME 104 fl (80.0-100.0); MEAN CORPUSCULAR HGB CONC 35 g/dl (33.0-37.0); MEAN PLATELET VOLUME 8.4 fl (7.4-10.4); PLATELET COUNT 587 K/mm3 (130-400); RED BLOOD COUNT 2.59 M/mm3 (4.20-5.60); REDCELL DISTRIBUTION WIDTH-CV 13.2 % (11.5-14.5)
[2018-08-29 09:14] LABS: HEMOGLOBIN 9.4 g/dl (13.5-18.0); MEAN CORPUSCULAR HEMOGLOBIN 36 pg (27.0-31.0)
[2018-08-29 09:16] LABS: ALBUMIN 2.8 gm/dL (3.5-5.0); CALCIUM 8.2 mg/dL (8.4-10.2); CREATININE, serum 0.48 mg/dL (0.66-1.25); POTASSIUM 3.8 mmol/L (3.4-5.0)
[2018-08-29 10:29] VITALS: BP 121/69; PULSE 87; TEMP 98.3
[2018-08-29 17:25] VITALS: BP 133/76; PULSE 74; TEMP 98.9
--- NOTE | 2018-08-29 19:07 | NUR ---
Patient is resting in bed on right side. Did complain of mild headache. PRN tylenol given per request. Feels like all of the medications given to him are causing the headache. No other complaints verbalized. Call light is within reach.
[2018-08-29 19:34] VITALS: BP 138/67; PULSE 79; TEMP 98.6
--- NOTE | 2018-08-29 21:05 | NUR ---
Patient resting in bed. States he is ready for bed and would like to get some solid hours of sleep. IV keppra administered, oral medications given. C/O headache- given acetaminophen. Pt ambulatory. No further needs at this time.
[2018-08-30 00:59] VITALS: BP 132/74; PULSE 79; TEMP 98.5
--- NOTE | 2018-08-30 01:35 | NUR ---
Pt c/o dry/itchy skin- given lotion for relief.
[2018-08-30 04:00] VITALS: BP 134/66; PULSE 66
--- NOTE | 2018-08-30 05:07 | NUR ---
Patient had difficulty sleeping last night. Walked the halls several times to try and tire himself out. Vitals stable, scoring 0 on ETOH protocol. C/O headache at beginning of shift, given tylenol.
--- NOTE | 2018-08-30 06:32 | NUR ---
Attempted new IV site. Vein blew. After one attempt patient refused to alllow another attempt. Would like to keep existing IV site in right arm.
[2018-08-30 06:41] LABS: CALCIUM 8.3 mg/dL (8.4-10.2); CREATININE, serum 0.46 mg/dL (0.66-1.25); POTASSIUM 3.9 mmol/L (3.4-5.0)
--- NOTE | 2018-08-30 06:52 | NUR ---
Report given to BRENDA Madden. Patient ambulating in hallway at this time.
--- NOTE | 2018-08-30 07:20 | NUR ---
Patient is sitting up on the side of the bed looking at menu. Verbalizes concern that his home is without heat and his water pipes may freeze. He also states he is tired of all the medications given and that he is fine. Does not understand what everyone is worried about. Continues to state, "I have to get home." Off going nurse reported that patient did not sleep much last night and patient stated this too. He states that he was unable to sleep because of the worries he has regarding his house. Denies having pain. Phone and call light are within reach.
[2018-08-30 08:30] VITALS: BP 135/69; PULSE 72; TEMP 98.5
[2018-08-30 12:13] VITALS: BP 129/78; PULSE 75; TEMP 97.9
--- NOTE | 2018-08-30 12:15 | NUR ---
Patient declined 1200 glucose test, stating he was tired of being poked with needles all the time.
--- NOTE | 2018-08-30 12:52 | NUR ---
Patient allowed INVESTIGATOR CLAIMS to obtain blood glucose.
--- NOTE | 2018-08-30 15:33 | NUR ---
Patient requested money from safe. Brought to floor by household assistant. Patient counted money with nurse and signed security bag.
[2018-08-30 16:15] VITALS: BP 119/71; PULSE 85; TEMP 98.2
--- NOTE | 2018-08-30 16:37 | NUR ---
Patient refused to have glucose checked again at this time. States he is sore from the shoulders down from all of the needles used on him.
--- NOTE | 2018-08-30 18:03 | NUR ---
Patient gave niece items he wanted for her to take home for him. Patient had patient belonging bags full of dietary coffee cups, plates and silverware. Some full of newspaper and miscellaneous trash.
[2018-08-30 19:18] VITALS: BP 98/59; PULSE 72; TEMP 99.2
--- NOTE | 2018-08-30 20:00 | NUR ---
PT HAD C/O BEING UNABLE TO SLEEP FOR THE "PAST 4 NIGHTS," STATED THAT HE ALSO HAD A DULL HEADACHE THAT HAS BEEN THERE FOR SINCE HE'S BEEN HERE AND REQUESTED TYLENOL. THIS NURSE ALSO OBTAINED AN ORDER FOR A MELATONIN TO HELP WITH SLEEP. THIS NURSE ADMINSTERED PRN TYLENOL AND MELATOININ. PT STATED HE DIDNT WANT THE MELATONIN AT THIS POINT BUT IF HE NEEDS IT HE WILL LET US KNOW.
[2018-08-31 00:16] VITALS: BP 117/71; PULSE 55; TEMP 98.9
[2018-08-31 04:18] VITALS: BP 131/82; PULSE 49; TEMP 97.6
--- NOTE | 2018-08-31 04:27 | NUR ---
PT CAME UP TO THIS NURSE AND ASKED IF WE HAD ANY SOAP TO WASH WITH AND WAS READY TO TAKE A SHOWER. THIS NURSE PROVIDED PT WITH TOWELS, SOAP AND STUFF TO BRUSH TEETH WITH, ALONG WITH SOME DEOTERANT. PT HAD HIS IV WRAPPED UP AND THEN WENT TO TAKE A SHOWER AT THIS TIME.
--- NOTE | 2018-08-31 04:31 | NUR ---
PT STATED THAT HE FINALLY WAS ABLE TO GET SOME GOOD SLEEP, "MORE THEN HAD GOTTEN SINCE HE HAD BEEN HERE"
--- NOTE | 2018-08-31 06:37 | NUR ---
PT REFURRED TO HOSPITAL A PENITENTI[facility] TO THIS NURSE WHEN I WAS PUTTING TELE BACK ON AFTER SHOWER. STATED HE WANTED TO GET OUT OF THIS PLACE AND GO BACK HOME. STATED HE WAS DONE BEING POKED AND PRODDED. AND THAT HE DOESNT TRUST THE DOCTORS OR ANYTHING THEY SAY OR DO.
--- NOTE | 2018-08-31 06:45 | NUR ---
Pt AAOx3 ambulating independently in [place] by nurses station without difficulty. Pt states "Im not insane, I need to get back home to take care of my chores and make sure the pipes in my home do not burst with this cold. 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
[2018-08-31 08:22] LABS: CREATININE, serum 0.49 mg/dL (0.66-1.25)
[2018-08-31 08:57] LABS: CALCIUM 8.6 mg/dL (8.4-10.2); POTASSIUM 3.8 mmol/L (3.4-5.0)
--- NOTE | 2018-08-31 09:03 | NUR ---
MD Kelley, Mineral Mixer Michelle Portillo (Nae) present for meeting.
[2018-08-31 09:26] VITALS: BP 105/73; PULSE 97; TEMP 98
--- NOTE | 2018-08-31 09:41 | NUR ---
LORENZO spoke with psych who would like sidra to come and screen. LORENZO called sidra and they will send Jermaine or another screener out today. [facility] left message friday denying patient.
--- NOTE | 2018-08-31 09:53 | NUR ---
Pt repeated a story related to potassium medication that was stated this morning at 0800. Pt has no recollection of conversation, pt states "there has been so many different people in and out, how am I supposed to keep track of everyone". DANA England notified of this forgetfullness.
--- NOTE | 2018-08-31 10:57 | NUR ---
[facility] in to see pt
[2018-08-31 12:08] VITALS: BP 100/64; PULSE 93; TEMP 99
--- NOTE | 2018-08-31 13:35 | NUR ---
Jermaine from [facility] met with patient to screen for involuntary placement. Patient did not meet criteria. Jermaine recommends terminal operator care placement however patient is not agreeable and wants to go home. SW called patients Niece/DPOA and discussed psych and mh screen results, informing her patient would need to dc home tomorrow or with family. She reports there is no family that is willing to take him home. SW asked if they would be willing to place in a hotel and she said he would just leave and return to the home. Nae reports animal control is supposed to come out tomorrow and remove all of the live and cats from the home but she hasn't heard from [facility] to see when they are going to come evaluate the home. LORENZO talked with Tari from [facility] who said she would follow up when he is home however they cannot make him get services if he does not want them. LORENZO asked if they helped pay for meals on wheels or HH and she said meals on wheels will not go out that far and they would have to wait on medicaid to set up hh however they probably wont accept patient after they see his living conditions. She asked for copies of psych eval and mh screen notes. SW faxed them to [phone]. Patient will be dc tomorrow. LORENZO will continue to follow.
[2018-08-31 16:13] VITALS: BP 104/60; PULSE 93; TEMP 99.1
[2018-08-31 19:25] VITALS: BP 123/72; PULSE 78; TEMP 98.4
--- NOTE | 2018-08-31 20:36 | NUR ---
PT A/O X4. PT REMOVED TELEMETERY AND REFUSES AT THIS TIME. PT ROAMS THE HALLS. VERY TALKATIVE AND COOPERATIVE. NO PAIN AT THIS TIME CALL LIGHT IN REACH.
[2018-09-01 00:55] VITALS: BP 97/61; PULSE 97; TEMP 98.2
--- NOTE | 2018-09-01 01:05 | NUR ---
PT REMOVED IV FROM LEFT FOREARM AND REFUSES PLACEMENT OF ANOTHER ONE. PT ROAMING THE HOSPITAL. PT WANTED BUT AND ADVISED THAT BUTTER WOULD BE KEPT IN THE REFRIGERATOR AND PT CONTINUES TO LOOK THROUGH ALL THE DRAWERS AND CABINETS. PT NON-COMPLIANT WITH FLUID RESTRICTION AND OTHER CARES.
[2018-09-01 04:30] VITALS: BP 123/81; PULSE 74; TEMP 98.3
[2018-09-01 06:26] LABS: CALCIUM 8.4 mg/dL (8.4-10.2); CREATININE, serum 0.47 mg/dL (0.66-1.25); POTASSIUM 3.8 mmol/L (3.4-5.0)
[2018-09-01 07:32] VITALS: BP 151/100; PULSE 144; TEMP 98
--- NOTE | 2018-09-01 08:20 | NUR ---
Pt is A+OX3 but his dialogue is inconsistent, occasionally incoherent and out of context. Pt is stable independently in room and about hallways where he has been helping himself to drinsk and snacks in kitchen. This RN repeatedly clarified nad reinforced the fluid restriction and each time pt sounds surprised and protests. Physical assessment completed, no INT in place as Pt refusing.
[2018-09-01] MEDS ORDERED: LIPITOR20 MG PO (08:26)
[2018-09-01] MEDS ORDERED: FOLIC ACID 11 MG/TA1 PO (08:26)
[2018-09-01] MEDS ORDERED: THERMOTABS 2871 TA1 PO ×2 (08:26→14:04)
[2018-09-01] MEDS ORDERED: MAG-OX 400400 MG/TAB PO (08:26)
[2018-09-01] MEDS ORDERED: MULTI VITAMINS1 TAB PO (08:26)
[2018-09-01] MEDS ORDERED: KEPPRA 500MG500 MG PO (08:26)
[2018-09-01] MEDS ORDERED: THIAMINE 1100 MG/TAB PO (08:26)
[2018-09-01] MEDS ORDERED: K-PHOS ORIGINA500 MG PO (08:26)
[2018-09-01] MEDS ORDERED: LASIX 20MG TABL20 MG PO (08:26)
[2018-09-01] MEDS ORDERED: NEXIUM 40MG40 MG PO (08:26)
[2018-09-01 08:27] VITALS: PULSE 92
--- NOTE | 2018-09-01 08:56 | NUR ---
LORENZO spoke with Dr Benson. She will be coming to meet with patient around lunch time. Will follow up with her after her evaluation.
--- NOTE | 2018-09-01 10:00 | NUR ---
Pt had several large trashbags and a box in room with hospital property. Pt reported, " the ER brought those up last night, I don't know what the heck they are". This RN noted gowns, blanket, many bottles of milk, juice, sugar, cream, a basket, white sticker labels, a plastic basket for silverware, clips, and a miscellany of further items. Pt has been observed wanderign halls, rummaging through drawers and browsing in gift shop, He has been redirected and followed as staff available. Currently sitting in room in chair, jennifer to leave.
--- NOTE | 2018-09-01 10:00 | NUR ---
LORENZO met with Tari, BASIL, and Nae, patients niece/dpoa. Tari discussed the change she has noticed in patient today and reports she did a mini mental status exam and he passed all of the questions. She would like to come out tomorrow and meet with patient in his home. She arranged with Nae to call and set up a time. Nae reports that she has animal control coming to the home at 2 pm to collect the cats and set traps for the live cats. Nae has also arranged for the [facility] services to be there as well as a few officers to help if patient becomes beligerant or angry as they expect him to do. Nae is going to ask her brother if he can transport him home at time of discharge. Tari is agreeable to this plan.
[2018-09-01 11:33] VITALS: BP 126/69; PULSE 90; TEMP 98.6
--- NOTE | 2018-09-01 12:18 | NUR ---
This RN just spoke with pt's melissa and TAYO, she shared, "one time I was squatting down cleaning his ten year old food out, when I look up and he had a hand gun pointing at me and he said, 'just take care of me'", This RN infomred Gloria from social work that there are known weapons in the house and he is clinically depressed.
--- NOTE | 2018-09-01 12:20 | NUR ---
Devante singh pt reports great concern over pt returning home alone, she states he has a repeating cycle of drinking himself unconscious, that he has 37 cats in home and four are , that home is full
--- NOTE | 2018-09-01 14:32 | NUR ---
Dr Benson met with patient to complete another exam after learning of patients neuro diagnosis. After she met with patient LORENZO, LORENZO student, Krystal (LORENZO director), Dr Benson, and patients niece (DPOA) and nephew to discuss actions that family will take for discharge today. Dr Hong assessment today states patient lacks the capacity to understand the consequenses reguarding his medical health. lead supply worker provided resource information for guardianship program as niece had questions about how to obtain. Nephew plans to transport patient home today and states they removed the gun from the home. Family will plan to meet [facility] police department, code services, and animal control. Nihome states sylvia will contact her with time to meet her at the house tomorrow. Options discussed reguarding alcohol treatment with family. Patient is dicharging home today.
--- NOTE | 2018-09-01 14:41 | NUR ---
Pt sitting in chair, agitated and states he is ready to leave. Medications administered and morning assessment completed. Pts breathing is even and unlabored, denies shortness of breath. No INT present due to pt refusal. Pt is alert and oriented x4 but occasionally conversation is inappropriate, comments are illogical.
--- NOTE | 2018-09-01 15:22 | NUR ---
Pt in room with nephew, all discharge paperwork given and explained. Pts questions answered and paperwork was signed. Pt had all personal belongings with him. Escorted pt to nephews vehicle.
--- NOTE | 2018-09-01 15:31 | NUR ---
Pt discharged, personal belongings collected and accompanied pt to curb. This RN looked at box of items which included many items from gift shop (champagne flutes, 8-12 books, bags of candy, newspapers, child toys, multiple backscratchers), and more hospital items which were removed. DPOA provided ride, pt left
--- NOTE | 2018-09-02 14:13 | NUR ---
boom stick worker spoke to Nae torres, and offered support and information about agencies and placement issues. Worker contacted the [facility] police department and advised of patient's seizure disorder and instruction not to drive. Worker spoke with Dr Dial and then gave her contact number to the police department. Nae is aware of the above information. Nae states they are meeting [facility], adult protective services, at patient's home today. Nae states she has visited with Vickie at the [place] [facility] and received supportive information.
--- NOTE | 2018-09-03 15:29 | NUR ---
Spoke with niece, Nae. She has concerns about caring for pt at home. Reviewed information provided yesterday by Krystal Butcher, Rn Interventional and encouraged her to follow up with Adult Protective Services and [place] Guard[facility]hip program.
== END 2018-09-01 15:43 | disposition home or self-care (01) | DRG 70 ==
LOC: COL.ER 17:26 → ICU 22:58 → MEDICAL 08-26 14:20
PROVIDERS: Emergency Medicine; Hospitalist; Internal Medicine; Internal Medicine Nephrology; Internal Medicine Pulmonary Disease; Nurse Practitioner Family; Physician Assistant
DX: G93.40 Encephalopathy, unspecified (principal); I21.A1 Myocardial infarction type 2; E43 Unspecified severe protein-calorie malnutrition; S22.039A Unspecified fracture of third thoracic vertebra, initial encounter for closed fracture; S22.059A Unspecified fracture of T5-T6 vertebra, initial encounter for closed fracture; S32.17XA Type 4 fracture of sacrum, initial encounter for closed fracture; S32.019A Unspecified fracture of first lumbar vertebra, initial encounter for closed fracture; S32.029A Unspecified fracture of second lumbar vertebra, initial encounter for closed fracture; G40.89 Other seizures; E46 Unspecified protein-calorie malnutrition; E22.2 Syndrome of inappropriate secretion of antidiuretic hormone; G96.0 Cerebrospinal fluid leak; E87.1 Hypo-osmolality and hyponatremia; E87.6 Hypokalemia; T79.6XXA Traumatic ischemia of muscle, initial encounter; S22.049S Unspecified fracture of fourth thoracic vertebra, sequela; W10.9XXA Fall (on) (from) unspecified stairs and steps, initial encounter; Z91.81 History of falling; Y92.009 Unspecified place in unspecified non-institutional (private) residence as the place of occurrence of the external cause; S01.552A Open bite of oral cavity, initial encounter; F17.210 Nicotine dependence, cigarettes, uncomplicated; F10.10 Alcohol abuse, uncomplicated; D64.9 Anemia, unspecified; E16.2 Hypoglycemia, unspecified; K29.70 Gastritis, unspecified, without bleeding; N40.0 Benign prostatic hyperplasia without lower urinary tract symptoms; Z80.42 Family history of malignant neoplasm of prostate; M25.462 Effusion, left knee; Z68.20 Body mass index [BMI] 20.0-20.9, adult; R41.0 Disorientation, unspecified; D47.3 Essential (hemorrhagic) thrombocythemia
CPT/HCPCS: 99223-AI; 99232-AI; 99233-AI; 99239; A9585; G0463; J1644; J1953; J2060; J3411; J3475; J3480; J7030; J7131

== ENCOUNTER 2019-01-10 13:24 | Emergency (ER) | payer MEDICAID ==
[~2019-01-10] VITALS: Ht 172.7 cm; Wt 54.4 kg
[~2019-01-10 13:24] MED LIST changes: +ASPIRIN 32325 MG/TAB PO; +FOLIC ACID 11 MG/TA1 PO; +K-PHOS ORIGINA500 MG PO; +KEPPRA 500MG500 MG PO; +LASIX 20MG TABL20 MG PO; +LIPITOR20 MG PO; +MAG-OX 400400 MG/TAB PO; +MULTI VITAMINS1 TAB PO; +NEXIUM 40MG40 MG PO; +THERMOTABS 2871 TA1 PO; +THIAMINE 1100 MG/TAB PO
[2019-01-10 13:44] VITALS: TEMP 99
[2019-01-10 15:14] LABS: BASO % 0.1 % (0.0-2.0); EOS # 0.1 (0.0-0.7); EOS % 0.4 % (0-4.0); GRAN # 7.8 (1.4-6.5); GRAN % 66.6 % (42.2-75.2); LYMPH # 2.6 (1.2-3.4); LYMPH % 22.2 % (20.0-51.0); MEAN CELL VOLUME 91 fl (80.0-100.0); MEAN CORPUSCULAR HEMOGLOBIN 32 pg (27.0-31.0); MEAN CORPUSCULAR HGB CONC 36 g/dl (33.0-37.0); MEAN PLATELET VOLUME 9.5 fl (7.4-10.4); MONO # 1.2 (0.1-0.6); MONO % 10.1 % (1.7-9.3); PLATELET COUNT 155 K/mm3 (130-400); RED BLOOD COUNT 3.71 M/mm3 (4.20-5.60); REDCELL DISTRIBUTION WIDTH-CV 18.3 % (11.5-14.5)
[2019-01-10 15:26] LABS: ALANINE AMINOTRANSFERASE 66 U/L (21-72); ALBUMIN 3.5 gm/dL (3.5-5.0); ALCOHOL(ethanol),MEDICAL 65 mg/dL; ALKALINE PHOSPHATASE 130 U/L (50-136); ANION GAP 11 mmol/L (7-16); AST,SGOT 192 U/L (15-37); BILIRUBIN,TOTAL 1.3 mg/dL (0.0-1.0); BLOOD UREA NITROGEN 5 mg/dL (9-20); CALCIUM 8.3 mg/dL (8.4-10.2); CARBON DIOXIDE 31 mmol/L (22-30); CREATININE, serum 0.57 (0.66-1.25); GLUCOSE 78 mg/dL (74-106); HEMATOCRIT 33.7 % (42.0-52.0); SALICYLATE 1.1 mg/dL; SODIUM 124 mmol/L (137-145); TOTAL PROTEIN 7.1 gm/dL (6.4-8.2)
[2019-01-10 15:27] LABS: INR 0.9 (0.8-3.0); PROTHROMBIN TIME 10.7 SECONDS (9.7-12.8)
[2019-01-10 15:27] LABS: COLLECTION METHOD CLEAN CATCH
[2019-01-10 15:30] VITALS: BP 126/79; PULSE 78
[2019-01-10 15:30] LABS: PARTIAL THROMBOPLASTIN TIME 27.8 SECONDS (26.0-37.0)
[2019-01-10 15:31] LABS: ACETAMINOPHEN < 10 ug/mL (10-30); CHLORIDE 81 mmol/L (98-107)
[2019-01-10 15:47] LABS: PH 6 (5-8); SQUAMOUS EPITHELIAL None Seen /hpf; URINE APPEARANCE Clear; URINE BACTERIA None Seen /hpf; URINE BILIRUBIN Negative (NEGATIVE); URINE BLOOD Negative (NEGATIVE); URINE COLOR Yellow; URINE GLUCOSE Negative (NEGATIVE); URINE KETONE Trace (NEGATIVE); URINE LEUKOCYTE ESTERASE Negative (NEGATIVE); URINE NITRATE Negative (NEGATIVE); URINE PROTEIN(semi-quant) Negative (NEGATIVE); URINE RBC 0-2 /hpf; URINE UROBILINOGEN Negative (NEGATIVE)
[2019-01-10 15:51] LABS: TRICYCLIC ANTIDEPRESS URINE NEGATIVE
--- NOTE | 2019-01-11 11:05 | NUR ---
LORENZO received a referral on patient. LORENZO attempted to call patients TAYO Hayes ([phone]) and left a vm. LORENZO also left VM for Tari at [facility] who was working on his APS case last time he was hospitalized and made a [facility] report. Will follow up with both
--- NOTE | 2019-01-11 13:27 | NUR ---
LORENZO talked with Patients DPOA. She reports patient called her sat and said he woke up on the ground in a pool of blood. He then continued to text her things that didn't make sense. The wed prior she took him food like jello and crackers because he reported he didn't feel well and was throwing up however she didn't see inside the home. Patients phone number is [phone] however she says that he doesnt answer much because he has bad cell foil spooler. LORENZO made follow up APS report. (#[id number] [phone])
--- NOTE | 2019-01-12 09:46 | NUR ---
Patient TAYO Haeys called this worker saying they havent heard from Giancarlo for awhile, longer than normal, and didnt know what to do. LORENZO informed her a welfare check could be done. She asked if LORENZO could call and get that done. LORENZO called [place] police who are going to go and do a welfare check.
--- NOTE | 2019-01-12 10:51 | NUR ---
[place] police called and reported patient is fine and was outside doing chores when he arrived. He did say that patient needed food and water. SW informed patients sister and KYLIEMURALI Hayes. No other needs at this time.
== END 2019-01-10 17:03 | disposition left against medical advice (07) ==
LOC: COL.ER 13:24
PROVIDERS: Emergency Medicine
DX: S06.5X9A Traumatic subdural hemorrhage with loss of consciousness of unspecified duration, initial encounter (principal); S00.83XA Contusion of other part of head, initial encounter; R40.2412 Glasgow coma scale score 13-15, at arrival to emergency department; F10.10 Alcohol abuse, uncomplicated; Z79.82 Long term (current) use of aspirin; W21.07XA Struck by softball, initial encounter; Y93.64 Activity, baseball; Y92.009 Unspecified place in unspecified non-institutional (private) residence as the place of occurrence of the external cause
CPT/HCPCS: J3411; J3475; J7030

== ENCOUNTER 2019-01-29 17:29 | Emergency (ER) | payer MEDICAID ==
[~2019-01-29] VITALS: Ht 167.6 cm; Wt 63.6 kg
[2019-01-29 17:33] VITALS: BP 143/101; PULSE 92; TEMP 98.7
[2019-01-29 18:22] LABS: BASO % 0.2 % (0.0-2.0); EOS # 0.1 (0.0-0.7); EOS % 0.5 % (0-4.0); GRAN # 6.8 (1.4-6.5); GRAN % 61.3 % (42.2-75.2); LYMPH # 2.9 (1.2-3.4); LYMPH % 26.2 % (20.0-51.0); MEAN CELL VOLUME 98 fl (80.0-100.0); MEAN CORPUSCULAR HEMOGLOBIN 33 pg (27.0-31.0); MEAN CORPUSCULAR HGB CONC 34 g/dl (33.0-37.0); MEAN PLATELET VOLUME 8.8 fl (7.4-10.4); MONO # 1.2 (0.1-0.6); MONO % 11.1 % (1.7-9.3); PLATELET COUNT 228 K/mm3 (130-400); RED BLOOD COUNT 3.59 M/mm3 (4.20-5.60); REDCELL DISTRIBUTION WIDTH-CV 16.2 % (11.5-14.5)
[2019-01-29 18:39] LABS: ALANINE AMINOTRANSFERASE 21 U/L (21-72); ALBUMIN 3.7 gm/dL (3.5-5.0); ALCOHOL(ethanol),MEDICAL 43 mg/dL; ALKALINE PHOSPHATASE 106 U/L (50-136); ANION GAP 12 mmol/L (7-16); AST,SGOT 54 U/L (15-37); BILIRUBIN,TOTAL 0.7 mg/dL (0.0-1.0); CALCIUM 8.8 mg/dL (8.4-10.2); CARBON DIOXIDE 23 mmol/L (22-30); CHLORIDE 101 mmol/L (98-107); GLUCOSE 85 mg/dL (74-106); POTASSIUM 3.5 mmol/L (3.4-5.0); SODIUM 136 mmol/L (137-145); TOTAL PROTEIN 7.3 gm/dL (6.4-8.2)
[2019-01-29 18:45] LABS: BLOOD UREA NITROGEN < 2 mg/dL (9-20)
[2019-01-29 18:50] LABS: TROPONIN-I < 0.012 ng/mL (0.000-0.035)
[2019-01-29] MEDS ORDERED: AMOXICILLIN 8751 TAB PO (19:06)
[2019-01-29] MEDS ORDERED: MEDROL4 MG (19:06)
== END 2019-01-29 20:20 | disposition left against medical advice (07) ==
LOC: COL.ER 17:29
PROVIDERS: Emergency Medicine
DX: S01.81XA Laceration without foreign body of other part of head, initial encounter (principal); F10.20 Alcohol dependence, uncomplicated; F17.210 Nicotine dependence, cigarettes, uncomplicated; R40.2412 Glasgow coma scale score 13-15, at arrival to emergency department; W01.0XXA Fall on same level from slipping, tripping and stumbling without subsequent striking against object, initial encounter; Y92.009 Unspecified place in unspecified non-institutional (private) residence as the place of occurrence of the external cause
CPT/HCPCS: Q9967

== ENCOUNTER 2019-04-25 19:38 | Emergency (ER) | payer MEDICAID ==
[~2019-04-25] VITALS: Ht 180.3 cm; Wt 63.6 kg
[~2019-04-25 19:38] MED LIST changes: +AMOXICILLIN 8751 TAB PO; +MEDROL4 MG
[2019-04-25 19:39] VITALS: TEMP 98
[2019-04-25 20:39] LABS: HEMOGLOBIN 12.1 g/dl (13.5-18.0); MEAN CELL VOLUME 94 fl (80.0-100.0); MEAN CORPUSCULAR HEMOGLOBIN 33 pg (27.0-31.0); MEAN CORPUSCULAR HGB CONC 35 g/dl (33.0-37.0); MEAN PLATELET VOLUME 9.3 fl (7.4-10.4); PLATELET COUNT 247 K/mm3 (130-400); RED BLOOD COUNT 3.67 M/mm3 (4.20-5.60); REDCELL DISTRIBUTION WIDTH-CV 14.6 % (11.5-14.5)
[2019-04-25 20:44] LABS: HEMATOCRIT 34.4 % (42.0-52.0)
[2019-04-25 20:55] LABS: ACETAMINOPHEN < 10 ug/mL (10-30); ALANINE AMINOTRANSFERASE 87 U/L (21-72); ALBUMIN 3.6 gm/dL (3.5-5.0); ALCOHOL(ethanol),MEDICAL < 10 mg/dL; ALKALINE PHOSPHATASE 136 U/L (50-136); ANION GAP 9 mmol/L (7-16); AST,SGOT 68 U/L (15-37); BILIRUBIN,TOTAL 0.8 mg/dL (0.0-1.0); BLOOD UREA NITROGEN 8 mg/dL (9-20); CALCIUM 8.7 mg/dL (8.4-10.2); CARBON DIOXIDE 30 mmol/L (22-30); CHLORIDE 91 mmol/L (98-107); CREATININE, serum 0.52 (0.66-1.25); GLUCOSE 99 mg/dL (74-106); POTASSIUM 3.1 mmol/L (3.4-5.0); SALICYLATE < 1.0 mg/dL; SODIUM 130 mmol/L (137-145); TOTAL PROTEIN 6.8 gm/dL (6.4-8.2)
[2019-04-25 21:05] LABS: ANISOCYTOSIS 1+; BAND 6 % (0-10); EOSINOPHIL 3 % (0-4); LYMPHOCYTE 25 % (20.0-51.0); NEUTROPHILS 51 % (42.0-75.2); PLATELET ESTIMATE NORMAL (NORMAL); SPHEROCYTE 1+
[2019-04-26 17:07] LABS: CALCIUM 8.2 mg/dL (8.4-10.2); CREATININE, serum 0.51 (0.66-1.25); POTASSIUM 3.5 mmol/L (3.4-5.0)
[2019-04-26 20:20] VITALS: BP 140/85; PULSE 95
== END 2019-04-26 20:30 ==
LOC: COL.ER 19:38
PROVIDERS: Emergency Medicine; Nurse Practitioner
DX: F29 Unspecified psychosis not due to a substance or known physiological condition (principal); F32.9 Major depressive disorder, single episode, unspecified; F03.90 Unspecified dementia, unspecified severity, without behavioral disturbance, psychotic disturbance, mood disturbance, and anxiety; Z88.2 Allergy status to sulfonamides; F17.210 Nicotine dependence, cigarettes, uncomplicated
CPT/HCPCS: J2060; J7030